=== PATIENT | female | born 1970 | race African-American/Black ===

== ENCOUNTER 2020-12-14 12:20 | Emergency (ER) | payer BC ==
[~2020-12-14] VITALS: Ht 157.5 cm; Wt 62.6 kg
== END 2020-12-14 16:13 | disposition home or self-care (01) ==
LOC: ER 12:20
DX: S60.455A Superficial foreign body of left ring finger, initial encounter (principal); M79.645 Pain in left finger(s); R60.0 Localized edema; W45.8XXA Other foreign body or object entering through skin, initial encounter; Y93.89 Activity, other specified; Y92.89 Other specified places as the place of occurrence of the external cause; Y99.8 Other external cause status